=== PATIENT | female | born 1990 | race Two or more races ===

== ENCOUNTER 2017-01-17 23:01 | Emergency (ER) | payer MEDICAID ==
[~2017-01-17] VITALS: Ht 157.5 cm; Wt 59.0 kg
[2017-01-17 23:14] VITALS: BP 125/90
== END 2017-01-18 01:02 | disposition left against medical advice (07) ==
LOC: ER 23:10
DX: I10 Essential (primary) hypertension (principal); F41.9 Anxiety disorder, unspecified; Z53.21 Procedure and treatment not carried out due to patient leaving prior to being seen by health care provider